=== PATIENT | female | born 1950 | race African-American/Black ===

== ENCOUNTER 2023-08-20 05:25 | Emergency (ER) | payer BC, MEDICARE, SELFPAY ==
[2023-08-20 06:52] LABS: #Basophils Less than 0.03 10x3/uL (0.0-0.2); #Eosinphils Less than 0.03 10x3/uL (0.0-0.7); %Basophils 0.2 % (0.0-1.0); %Eosinophils 0.2 % (0.0-10.0); %Lymphocytes 29.3 % (21.0-51.0); %Monocytes 9.3 % (0.0-10.0); %Neutrophils 60.6 % (42.0-75.0); Hematocrit 30.2 % (36.0-47.0); Hemoglobin 9.9 g/dL (12.0-16.0); Mean Corpuscular HGB CONC 32.8 g/dL (32.0-36.0); Mean Corpuscular Hemoglobin 30.9 pg (27.0-31.0); Mean Corpuscular Volume 94.4 fL (78.0-98.0); Mean Platelet Volume 9.7 fL (7.4-10.4); Platelet Count 248 10x3/uL (130-400); RBC Distribution Width 12.9 % (11.5-14.5)
[2023-08-20 07:10] LABS: ALT (SGPT) 9 U/L (8-55); AST (SGOT) 16 U/L (5-34); Albumin 3.1 g/dL (3.4-4.8); Alkaline Phosphatase 48 U/L (40-110); Anion Gap 14 mmol/L (10-20); BUN (Urea Nitrogen) 13 mg/dL (9.8-20.1); Bilirubin, Total 0.3 mg/dL (0.2-1.2); Calc. Creatinine Clearance 0 mL/min (70-130); Calcium 8.5 mg/dL (7.8-10.44); Carbon Dioxide 28 mmol/L (23-31); Chloride 104 mmol/L (98-107); Estimated GFR 81; Globulin 3.3 g/dL (2.4-3.5); Glucose 85 mg/dL (83-110); Potassium 2.7 mmol/L (3.5-5.1); Protein, Total 6.4 g/dL (5.8-8.1); Sodium 143 mmol/L (136-145)
[2023-08-20] MEDS ORDERED: Potassium Chloride 20 MEQ TAB ONE (08:41)
== END 2023-08-20 09:20 | disposition home or self-care (01) ==
LOC: ERS 05:25
DX: E11.649 Type 2 diabetes mellitus with hypoglycemia without coma (principal); I10 Essential (primary) hypertension; J45.909 Unspecified asthma, uncomplicated; Z79.82 Long term (current) use of aspirin; Z79.84 Long term (current) use of oral hypoglycemic drugs
CPT/HCPCS: 36416; 80053; 82010; 85025; 93005; 94760